=== PATIENT | female | born 1940 | race Caucasian/White ===

== ENCOUNTER → 2016-07-09 | Outpatient (CLI) | payer MEDICARE ==
[~2016-07-09] MED LIST: ASPI-496 PO; ATOR10TA9 PO; CALC500T26 PO; CHOL5000 PO; GABA300C10 PO; GLIP10TA13 PO; HYDR25TA6 PO; LOSA50TA6 PO; METF500T4 PO; SITA50TA PO; VITA1TAB3 PO
== END | disposition home or self-care (01) ==
LOC: CFH 13:06
PROVIDERS: ATTEND Nurse Practitioner
DX: E04.2 Nontoxic multinodular goiter (principal)
CPT/HCPCS: 76536

== ENCOUNTER → 2016-08-03 | Outpatient (CLI) | payer MEDICARE | END | disposition home or self-care (01) | LOC: CVU 10:31 | PROVIDERS: ATTEND Nurse Practitioner | DX: R25.2 Cramp and spasm (principal); I10 Essential (primary) hypertension; E11.9 Type 2 diabetes mellitus without complications; Z87.891 Personal history of nicotine dependence; Z86.73 Personal history of transient ischemic attack (TIA), and cerebral infarction without residual deficits; Z86.718 Personal history of other venous thrombosis and embolism | CPT/HCPCS: 93922 ==

== ENCOUNTER → 2016-12-20 | Outpatient (CLI) | payer MEDICARE ==
[~2016-12-20] MED LIST changes: -CALC500T26 PO; +CALC500T93 PO
== END | disposition home or self-care (01) ==
LOC: CFH 12:26
PROVIDERS: ATTEND Internal Medicine Cardiovascular Disease
DX: I08.1 Rheumatic disorders of both mitral and tricuspid valves (principal); I10 Essential (primary) hypertension; E11.9 Type 2 diabetes mellitus without complications
CPT/HCPCS: 93306

== ENCOUNTER → 2017-06-29 | Outpatient (CLI) | payer MEDICARE ==
[~2017-06-29] MED LIST changes: +LIDOCAINE-MPF 1%, 5ML ONE; +OMNIPAQUE 350 MG/ML, 100ML BOTTLE ONE
[2017-06-29 13:00] LABS: CREATININE 1.08 mg/dL (0.55-1.02)
== END | disposition home or self-care (01) ==
LOC: RAD 12:16
PROVIDERS: ATTEND Otolaryngology Facial Plastic Surgery
DX: D11.0 Benign neoplasm of parotid gland (principal)
CPT/HCPCS: 10022; 36415; 70491; 76942; 82565; 88112; 88173; Q9967

== ENCOUNTER → 2017-08-25 | Outpatient (CLI) | payer MEDICARE ==
[~2017-08-25] MED LIST changes: +BENZ1TAB61 PO; +Cogentin PO; +DULO30CA2 PO; +INSU100I13 SC; -LIDOCAINE-MPF 1%, 5ML ONE; -OMNIPAQUE 350 MG/ML, 100ML BOTTLE ONE; +PREG75CA PO; +SERT25TA3 PO
[2017-08-25 16:15] LABS: ANION GAP 3 mmol/L (5-15); CALCIUM 8.8 mg/dL (8.5-10.1); CHLORIDE 109 mmol/L (98-107)
[2017-08-25 16:18] LABS: ALANINE AMINOTRANSFERASE 20 U/L (12-78); ALKALINE PHOSPHATASE 87 U/L (45-117); BILIRUBIN,TOTAL 0.4 mg/dL (0.2-1.0); TOTAL PROTEIN 7.7 g/dL (6.4-8.2)
[2017-08-25 16:38] LABS: BASOPHILS # (AUTO) 0.07 x10^3/uL (0-0.1); BASOPHILS % (AUTO) 1 % (0-1); EOSINOPHILS # (AUTO) 0.25 x10^3/uL (0-0.4); EOSINOPHILS % (AUTO) 3 % (1-7); LYMPHOCYTES # (AUTO) 2.36 x10^3/uL (1-3.4); LYMPHOCYTES % (AUTO) 30 % (22-44); MD NO; MEAN CORPUSCULAR HEMOGLOBIN 29.5 pg (27.0-34.8); MEAN CORPUSCULAR HGB CONC 33.3 g/dL (32.4-35.8); MEAN CORPUSCULAR VOLUME 88.7 fL (80-100); MEAN PLATELET VOLUME 9.8 fL (7.4-10.4); MONOCYTES # (AUTO) 0.51 x10^3/uL (0.2-0.8); MONOCYTES % (AUTO) 7 % (2-9); NEUTROPHILS # (AUTO) 4.65 x10^3/uL (1.8-6.8); NEUTROPHILS % (AUTO) 59 % (42-75); PLATELET COUNT 283 x10^3/uL (130-400); RED BLOOD COUNT 4.08 x10^6/uL (3.82-5.3); RED CELL DISTRIBUTION WIDTH 14.9 % (9.6-15.2)
== END | disposition home or self-care (01) ==
LOC: STAR 15:04
PROVIDERS: ATTEND Otolaryngology Facial Plastic Surgery
DX: Z01.818 Encounter for other preprocedural examination (principal); I45.10 Unspecified right bundle-branch block; D36.7 Benign neoplasm of other specified sites
CPT/HCPCS: 36415; 71046; 80053; 85025; 93005

== ENCOUNTER 2017-08-29 10:15 | Inpatient (IN) | payer MEDICARE ==
[2017-08-25 16:04] VITALS: BP 118/77
[~2017-08-29] VITALS: Ht 165.1 cm; Wt 96.6 kg
[2017-08-29] MEDS ORDERED: LACTATED RINGERS 1,000 ML IV SCH (10:40)
[2017-08-29] MEDS ORDERED: LIDOCAINE-MPF 1%, 2ML INFIL ONE (11:00)
[2017-08-29] MEDS ORDERED: DEXTROSE 50%, 50ML SYRINGE IVPush ONE (12:00)
[2017-08-29] MEDS ORDERED: BACITRACIN ZINC OINT 500U/GM, 0.9 GM ONE (14:02)
[2017-08-29] MEDS ORDERED: LIDOCAINE/PF 1%, 30ML ONE (14:02)
[2017-08-29] MEDS ORDERED: EPINEPHRINE 1 MG/ML, 1ML ONE (14:02)
[2017-08-29] MEDS ORDERED: MICROFIBRILLAR COLLAGEN 1 GM TP ONE (14:03)
[2017-08-29] MEDS ORDERED: SUCCINYLCHOLINE 20 MG/ML, 10ML ONE (14:15)
[2017-08-29] MEDS ORDERED: FENTANYL PF 100 MCG/2ML ONE ×4 (14:15→16:40)
[2017-08-29] MEDS ORDERED: LABETALOL 5MG/ML, 20ML ONE (14:15)
[2017-08-29] MEDS ORDERED: DEXAMETHASONE 4 MG/ML, 1ML ONE (14:15)
[2017-08-29] MEDS ORDERED: CEFAZOLIN 1,000 MG ONE (14:15)
[2017-08-29] MEDS ORDERED: PROPOFOL 10 MG/ML, 20ML ONE (14:15)
[2017-08-29] MEDS ORDERED: THROMBIN 5,000 UNIT VIAL TP ONE (17:48)
[2017-08-29] MEDS ORDERED: FENTANYL PF 100 MCG/2ML IV PRN (18:00)
[2017-08-29] MEDS ORDERED: LABETALOL 5MG/ML, 20ML IV PRN (18:00)
[2017-08-29] MEDS ORDERED: ACETAMINOPHEN 325 MG TABLET PO PRN ×2 (18:00→22:30)
[2017-08-29] MEDS ORDERED: HALOPERIDOL 5 MG/ML IV PRN (18:00)
[2017-08-29] MEDS ORDERED: OXYcodone 5 MG/5 ML ORAL.SOL UDC PO PRN (18:00)
[2017-08-29] MEDS ORDERED: hydrALAzine 20 MG/ML, 1ML IV PRN (18:00)
[2017-08-29] MEDS ORDERED: HYDROmorphone 1 MG/ML, 1ML IV PRN (18:00)
[2017-08-29] MEDS ORDERED: BISACODYL 10 MG SUPP PR PRN (22:30)
[2017-08-29] MEDS ORDERED: morphine SULFATE 10 MG/ML, 1ML IVPush PRN (22:30)
[2017-08-29] MEDS ORDERED: hydrALAzine 20 MG/ML, 1ML IVPush PRN (22:30)
[2017-08-29] MEDS ORDERED: LABETALOL 5MG/ML, 20ML IVPush PRN (22:30)
[2017-08-29] MEDS ORDERED: HYDROcodone/APAP 5/325 TABLET PO PRN (22:30)
[2017-08-29] MEDS ORDERED: POLYETHYLENE GLYCOL 17 GM PACKET PO PRN (22:30)
[2017-08-29] MEDS ORDERED: ONDANSETRON ODT 4 MG PO PRN (22:30)
[2017-08-29] MEDS ORDERED: DOCUSATE 100 MG CAPSULE PO PRN (22:30)
[2017-08-30 00:14] VITALS: BP 131/70
[2017-08-30 04:25] VITALS: BP 113/69
[2017-08-30 05:55] LABS: BASOPHILS # (AUTO) 0.13 x10^3/uL (0-0.1); BASOPHILS % (AUTO) 1 % (0-1); EOSINOPHILS % (AUTO) 0 % (1-7); LYMPHOCYTES % (AUTO) 14 % (22-44); MD NO; MEAN CORPUSCULAR HEMOGLOBIN 29.1 pg (27.0-34.8); MEAN CORPUSCULAR HGB CONC 32.9 g/dL (32.4-35.8); MEAN CORPUSCULAR VOLUME 88.3 fL (80-100); MEAN PLATELET VOLUME 9.1 fL (7.4-10.4); MONOCYTES # (AUTO) 0.47 x10^3/uL (0.2-0.8); MONOCYTES % (AUTO) 4 % (2-9); NEUTROPHILS # (AUTO) 9.21 x10^3/uL (1.8-6.8); NEUTROPHILS % (AUTO) 81 % (42-75); PLATELET COUNT 206 x10^3/uL (130-400); RED BLOOD COUNT 3.57 x10^6/uL (3.82-5.3)
[2017-08-30 05:56] LABS: ANION GAP 7 mmol/L (5-15); CALCIUM 8.3 mg/dL (8.5-10.1); CHLORIDE 106 mmol/L (98-107); CREATININE 0.98 mg/dL (0.55-1.02)
[2017-08-30 08:40] VITALS: BP 93/59
[2017-08-30] MEDS ORDERED: CEPH-368 PO (13:40)
[2017-08-30 13:47] VITALS: BP 104/64
== END 2017-08-30 15:44 | disposition home or self-care (01) | DRG 139 ==
LOC: OUT 10:15 → 4NOR 20:40 → OUT 22:24 → DCLOUNGE 08-30 15:32
PROVIDERS: ADMIT Hospitalist; ATTEND Otolaryngology Facial Plastic Surgery
PROC: 0CT80ZZ Resection of Right Parotid Gland, Open Approach (ICD-10-PCS; principal; 2017-08-29 13:00)
DX: D11.0 Benign neoplasm of parotid gland (principal); E11.9 Type 2 diabetes mellitus without complications; E78.5 Hyperlipidemia, unspecified; F32.9 Major depressive disorder, single episode, unspecified; F41.9 Anxiety disorder, unspecified; I10 Essential (primary) hypertension; Z87.891 Personal history of nicotine dependence; Z90.49 Acquired absence of other specified parts of digestive tract; Z72.89 Other problems related to lifestyle
CPT/HCPCS: 36415; 80048; 82962; 85025; 88305; C1729; J0171; J0690; J1100; J2704; J3010; J3490; J0330; J7120

== ENCOUNTER 2017-09-28 13:30 | Inpatient (IN) | payer MEDICARE ==
[~2017-09-28] VITALS: Ht 165.1 cm; Wt 93.4 kg
[~2017-09-28 13:30] MED LIST changes: +BENZ2AMP4 PO; +CEPH-368 PO; +DIPH25CA61 PO; -METF500T4 PO; +METF500T5 PO; +METO10TA82 PO
[2017-09-28] MEDS ORDERED: MORPHINE SULFATE 4 MG/ML, 1ML IVPush PRN ×2 (15:00→19:30)
[2017-09-28] MEDS ORDERED: ONDANSETRON 2MG/ML, 2ML IVPush ONE (15:00)
[2017-09-28] MEDS ORDERED: ONDANSETRON 2MG/ML, 2ML ONE (15:09)
[2017-09-28] MEDS ORDERED: MORPHINE SULFATE 4 MG/ML, 1ML ONE (15:10)
[2017-09-28] MEDS ORDERED: ACETAMINOPHEN 325 MG TABLET PO PRN (19:30)
[2017-09-28] MEDS ORDERED: GLUCAGON 1 MG IM PRN (19:30)
[2017-09-28] MEDS ORDERED: SENNA/DOCUSATE TABLET PO PRN (19:30)
[2017-09-28] MEDS ORDERED: DEXTROSE 50%, 50ML SYRINGE IVPush PRN (19:30)
[2017-09-28] MEDS ORDERED: LABETALOL 5MG/ML, 20ML IVPush PRN (19:30)
[2017-09-28] MEDS ORDERED: DEXTROSE 4 GM TAB.CHEW PO PRN (19:30)
[2017-09-28] MEDS ORDERED: METOCLOPRAMIDE 10MG TABLET PO PRN (19:30)
[2017-09-28 20:25] VITALS: BP 133/63
[2017-09-28] MEDS: INSULIN LISPRO 100 UNITS/ML, PEN SQ-INSULIN SCH (21:00)
[2017-09-28] MEDS: INSULIN GLARGINE 100 UNITS/ML, PEN SQ-INSULIN SCH (21:00)
[2017-09-28] MEDS: ENOXAPARIN 30 MG/0.3 ML SQ SCH (22:31)
[2017-09-28] MEDS: SODIUM CHLORIDE FLUSH 10ML SYR IVF SCH (22:32)
[2017-09-28] MEDS: PREGABALIN 75 MG CAPSULE PO SCH (22:32)
[2017-09-28] MEDS: ATORVASTATIN 10 MG TABLET PO SCH (22:32)
[2017-09-29] MEDS ORDERED: DIPHENHYDRAMINE 12.5MG/5ML, 10ML UDC PO PRN
[2017-09-29 01:00] VITALS: BP_SYST 104; BP_SYST 135; BP_DIAS 68; BP_DIAS 81
[2017-09-29] MEDS: INSULIN LISPRO 100 UNITS/ML, PEN SQ-INSULIN SCH ×4 (07:00→20:52)
[2017-09-29 08:00] VITALS: BP 108/67
[2017-09-29] MEDS: LOSARTAN 50MG TABLET PO SCH (08:41)
[2017-09-29] MEDS: ENOXAPARIN 30 MG/0.3 ML SQ SCH ×2 (08:41→20:48)
[2017-09-29] MEDS: PREGABALIN 75 MG CAPSULE PO SCH ×2 (08:41→21:00)
[2017-09-29] MEDS: SERTRALINE 50MG TABLET PO SCH (08:41)
[2017-09-29] MEDS: HYDROCHLOROTHIAZIDE 25 MG TABLET PO SCH (08:41)
[2017-09-29] MEDS: DULOXETINE 30 MG CAPSULE.DR PO SCH (08:41)
[2017-09-29] MEDS: SODIUM CHLORIDE FLUSH 10ML SYR IVF SCH ×2 (08:42→20:48)
[2017-09-29] MEDS: HYDROcodone/APAP 5/325 TABLET PO PRN ×2 (10:46→18:22)
[2017-09-29 14:30] VITALS: BP 90/67
[2017-09-29] MEDS: ONDANSETRON 2MG/ML, 2ML IVPush PRN (18:39)
[2017-09-29 20:00] VITALS: BP 105/62
[2017-09-29] MEDS: ATORVASTATIN 10 MG TABLET PO SCH (21:00)
[2017-09-29] MEDS: INSULIN GLARGINE 100 UNITS/ML, PEN SQ-INSULIN SCH (22:25)
[2017-09-29] MEDS ORDERED: MORPHINE SULFATE 4 MG/ML, 1ML IV PRN (23:00)
[2017-09-29] MEDS ORDERED: KETOROLAC 30 MG/1 ML IVPush SCH (23:00)
[2017-09-29] MEDS ORDERED: KETOROLAC 30 MG/1 ML IVPush PRN (23:30)
[2017-09-30 01:57] VITALS: BP 116/71
[2017-09-30] MEDS: ONDANSETRON 2MG/ML, 2ML IVPush PRN ×3 (02:18→14:23)
[2017-09-30] MEDS: INSULIN LISPRO 100 UNITS/ML, PEN SQ-INSULIN SCH ×3 (07:00→16:02)
[2017-09-30 07:15] VITALS: BP 153/82
[2017-09-30] MEDS: SODIUM CHLORIDE FLUSH 10ML SYR IVF SCH (08:15)
[2017-09-30] MEDS: ENOXAPARIN 30 MG/0.3 ML SQ SCH (08:22)
[2017-09-30] MEDS: LOSARTAN 50MG TABLET PO SCH (08:26)
[2017-09-30] MEDS: PREGABALIN 75 MG CAPSULE PO SCH (08:27)
[2017-09-30] MEDS: SERTRALINE 50MG TABLET PO SCH (08:27)
[2017-09-30] MEDS: HYDROCHLOROTHIAZIDE 25 MG TABLET PO SCH (08:27)
[2017-09-30] MEDS: DULOXETINE 30 MG CAPSULE.DR PO SCH (08:27)
[2017-09-30] MEDS ORDERED: KETOROLAC 30 MG/1 ML IVPush SCH (11:00)
[2017-09-30] MEDS: HYDROcodone/APAP 5/325 TABLET PO PRN (14:23)
[2017-09-30 14:30] VITALS: BP 118/68
[2017-09-30 16:10] VITALS: BP 112/71
== END 2017-09-30 17:15 | DRG 556 ==
LOC: ED 19:01 → EDIP 19:06 → ED 19:51 → 4NOR 20:15 → OBSVTOIN 09-29 10:22
PROVIDERS: ADMIT Student in an Organized Health Care Education/Training Program; ATTEND Student in an Organized Health Care Education/Training Program
DX: M25.552 Pain in left hip (principal); C64.1 Malignant neoplasm of right kidney, except renal pelvis; M16.11 Unilateral primary osteoarthritis, right hip; Z80.1 Family history of malignant neoplasm of trachea, bronchus and lung; Z82.49 Family history of ischemic heart disease and other diseases of the circulatory system; Z83.3 Family history of diabetes mellitus; I10 Essential (primary) hypertension; E11.9 Type 2 diabetes mellitus without complications; F17.210 Nicotine dependence, cigarettes, uncomplicated; F32.9 Major depressive disorder, single episode, unspecified; Z79.4 Long term (current) use of insulin; Z79.899 Other long term (current) drug therapy; Z98.1 Arthrodesis status; F41.9 Anxiety disorder, unspecified; W01.0XXA Fall on same level from slipping, tripping and stumbling without subsequent striking against object, initial encounter; Y93.89 Activity, other specified; Y92.89 Other specified places as the place of occurrence of the external cause; Y99.8 Other external cause status; E78.5 Hyperlipidemia, unspecified
CPT/HCPCS: 72110; 82962; 96372; 96374; 96375; 96376; G0378; J1650; J2405; J1815

== ENCOUNTER → 2017-11-16 | Outpatient (CLI) | payer MEDICARE ==
[~2017-11-16] MED LIST changes: +REGADENOSON 0.4 MG/5 ML SYRINGE ONE
== END | disposition home or self-care (01) ==
LOC: CFH 12:42
PROVIDERS: ATTEND Internal Medicine Cardiovascular Disease
DX: Z01.810 Encounter for preprocedural cardiovascular examination (principal); I34.0 Nonrheumatic mitral (valve) insufficiency
CPT/HCPCS: 78452; 93017; A9502; J2785

== ENCOUNTER 2017-12-02 19:02 | Emergency (ER) | payer MEDICARE ==
[~2017-12-02] VITALS: Ht 165.1 cm; Wt 80.0 kg
[~2017-12-02 19:02] MED LIST changes: -LOSA50TA6 PO; +LOSA50TA7 PO; +METF500T17 PO; -METF500T5 PO; -REGADENOSON 0.4 MG/5 ML SYRINGE ONE
[2017-12-02 20:26] VITALS: BP 138/62
[2017-12-02] MEDS ORDERED: OXYcodone/APAP 10/325MG TABLET PO ONE (21:00)
[2017-12-02] MEDS ORDERED: OXYcodone/APAP 10/325MG TABLET ONE (21:04)
== END 2017-12-02 22:06 | disposition home or self-care (01) ==
LOC: ED 21:58
DX: S39.012A Strain of muscle, fascia and tendon of lower back, initial encounter (principal); S06.310A Contusion and laceration of right cerebrum without loss of consciousness, initial encounter; M51.34 Other intervertebral disc degeneration, thoracic region; I10 Essential (primary) hypertension; E11.9 Type 2 diabetes mellitus without complications; R51 Headache; W01.0XXA Fall on same level from slipping, tripping and stumbling without subsequent striking against object, initial encounter; Y93.89 Activity, other specified; Y99.8 Other external cause status; Y92.009 Unspecified place in unspecified non-institutional (private) residence as the place of occurrence of the external cause
CPT/HCPCS: 70450; 72110; 72125; 72190; 99284

== ENCOUNTER 2017-12-07 11:20 | Inpatient (IN) | payer MEDICARE ==
[~2017-12-07] VITALS: Ht 175.3 cm; Wt 84.2 kg
[2017-12-07] MEDS ORDERED: SODIUM CHLORIDE 0.9% 1,000ML IVBOLUS ONE (12:30)
[2017-12-07 12:43] LABS: BASOPHILS # (AUTO) 0.04 x10^3/uL (0-0.1); BASOPHILS % (AUTO) 0 % (0-1); EOSINOPHILS # (AUTO) 0.01 x10^3/uL (0-0.4); EOSINOPHILS % (AUTO) 0 % (1-7); LYMPHOCYTES # (AUTO) 1.22 x10^3/uL (1-3.4); LYMPHOCYTES % (AUTO) 9 % (22-44); MD NO; MEAN CORPUSCULAR HEMOGLOBIN 29.8 pg (27.0-34.8); MEAN CORPUSCULAR HGB CONC 33.4 g/dL (32.4-35.8); MEAN CORPUSCULAR VOLUME 89.3 fL (80-100); MEAN PLATELET VOLUME 9.7 fL (7.4-10.4); MONOCYTES # (AUTO) 0.31 x10^3/uL (0.2-0.8); MONOCYTES % (AUTO) 2 % (2-9); NEUTROPHILS % (AUTO) 88 % (42-75); PLATELET COUNT 238 x10^3/uL (130-400); RED BLOOD COUNT 4.08 x10^6/uL (3.82-5.3); RED CELL DISTRIBUTION WIDTH 15.7 % (9.6-15.2)
[2017-12-07 12:55] LABS: INTERNATIONAL NORMALIZED RATIO 1.11 (0.93-1.1); PROTHROMBIN TIME 11.5 Seconds (9.6-11.5)
[2017-12-07] MEDS ORDERED: METO10TA82 PO (12:58)
[2017-12-07 13:00] LABS: CHLORIDE 102 mmol/L (98-107)
[2017-12-07 13:07] LABS: ANION GAP 13 mmol/L (5-15); CALCIUM 9.7 mg/dL (8.5-10.1); CREATININE 0.96 mg/dL (0.55-1.02)
[2017-12-07 13:08] LABS: ALANINE AMINOTRANSFERASE 17 U/L (12-78); ALKALINE PHOSPHATASE 85 U/L (45-117); BILIRUBIN,TOTAL 0.7 mg/dL (0.2-1.0); TOTAL PROTEIN 7.8 g/dL (6.4-8.2)
[2017-12-07 13:24] LABS: MICROSCOPIC INDICATED
[2017-12-07] MEDS ORDERED: CEFTRIAXONE PMX 1GM/50ML 50 ML ONE (14:14)
[2017-12-07 14:24] LABS: CULTURE INDICATED? YES
[2017-12-07] MEDS ORDERED: ONDANSETRON ODT 4 MG PO PRN (14:30)
[2017-12-07] MEDS ORDERED: DEXTROSE 4 GM TAB.CHEW PO PRN (14:30)
[2017-12-07] MEDS ORDERED: GLUCAGON 1 MG IM PRN (14:30)
[2017-12-07] MEDS ORDERED: METOCLOPRAMIDE 10MG TABLET PO PRN (14:30)
[2017-12-07] MEDS ORDERED: IBUPROFEN 600 MG TABLET PO PRN (14:30)
[2017-12-07] MEDS ORDERED: DEXTROSE 50%, 50ML SYRINGE IVPush PRN (14:30)
[2017-12-07] MEDS ORDERED: ACETAMINOPHEN 325 MG TABLET PO PRN (14:30)
[2017-12-07] MEDS ORDERED: POLYETHYLENE GLYCOL 17 GM PACKET PO PRN (14:30)
[2017-12-07] MEDS ORDERED: ENOXAPARIN 40 MG/0.4 ML SQ SCH (14:30)
[2017-12-07] MEDS ORDERED: DOCUSATE 100 MG CAPSULE PO PRN (14:30)
[2017-12-07] MEDS ORDERED: LACTATED RINGERS 1,000 ML IV SCH (14:30)
[2017-12-07] MEDS ORDERED: POTASSIUM CHLORIDE 30 MEQ in LACTATED RINGERS 1,000 ML IV SCH (14:30)
[2017-12-07 14:56] LABS: TROPONIN I 0.047 ng/mL (0.000-0.045)
[2017-12-07 14:57] VITALS: BP 133/65
[2017-12-07] MEDS ORDERED: MAGNESIUM SULFATE 3 GM in SODIUM CHLORIDE 0.9% 100 ML IV ONE (15:00)
[2017-12-07] MEDS ORDERED: CEFTRIAXONE 1,000 MG in SODIUM CHLORIDE 0.9% 50 ML IV ONE (15:00)
[2017-12-07] MEDS: INSULIN LISPRO 100 UNITS/ML, PEN SQ-INSULIN SCH ×2 (17:46→21:07)
[2017-12-07 18:54] VITALS: BP 114/72
[2017-12-07 20:38] LABS: TROPONIN I 0.049 ng/mL (0.000-0.045)
[2017-12-07] MEDS: POTASSIUM CHLORIDE 30 MEQ in LACTATED RINGERS 1,000 ML IV SCH (21:05)
[2017-12-07] MEDS: PREGABALIN 75 MG CAPSULE PO SCH (21:06)
[2017-12-07] MEDS: SODIUM CHLORIDE FLUSH 10ML SYR IVF SCH (21:06)
[2017-12-07] MEDS: INSULIN GLARGINE 100 UNITS/ML, PEN SQ-INSULIN SCH (21:07)
[2017-12-07] MEDS: ATORVASTATIN 10 MG TABLET PO SCH (21:07)
[2017-12-08 02:38] VITALS: BP 106/63
[2017-12-08 05:28] LABS: ANION GAP 9 mmol/L (5-15); CALCIUM 8.5 mg/dL (8.5-10.1); CHLORIDE 108 mmol/L (98-107); CREATININE 0.72 mg/dL (0.55-1.02)
[2017-12-08 05:35] LABS: BASOPHILS # (AUTO) 0.03 x10^3/uL (0-0.1); BASOPHILS % (AUTO) 0 % (0-1); EOSINOPHILS # (AUTO) 0.18 x10^3/uL (0-0.4); EOSINOPHILS % (AUTO) 2 % (1-7); LYMPHOCYTES # (AUTO) 2.96 x10^3/uL (1-3.4); LYMPHOCYTES % (AUTO) 28 % (22-44); MD NO; MEAN CORPUSCULAR HEMOGLOBIN 29.6 pg (27.0-34.8); MEAN CORPUSCULAR HGB CONC 33.4 g/dL (32.4-35.8); MEAN CORPUSCULAR VOLUME 88.5 fL (80-100); MEAN PLATELET VOLUME 10.3 fL (7.4-10.4); MONOCYTES # (AUTO) 0.67 x10^3/uL (0.2-0.8); MONOCYTES % (AUTO) 6 % (2-9); NEUTROPHILS # (AUTO) 6.81 x10^3/uL (1.8-6.8); NEUTROPHILS % (AUTO) 64 % (42-75); PLATELET COUNT 179 x10^3/uL (130-400); RED BLOOD COUNT 3.46 x10^6/uL (3.82-5.3); RED CELL DISTRIBUTION WIDTH 15.6 % (9.6-15.2)
[2017-12-08] MEDS ORDERED: POTASSIUM CHLORIDE 40 MEQ in SODIUM CHLORIDE 0.9% 500 ML IV ONE (06:30)
[2017-12-08] MEDS: INSULIN LISPRO 100 UNITS/ML, PEN SQ-INSULIN SCH ×4 (07:00→20:26)
[2017-12-08 07:51] VITALS: BP 130/74
[2017-12-08] MEDS ORDERED: LACTATED RINGERS 500 ML IVBOLUS ONE (08:30)
[2017-12-08] MEDS: BENZTROPINE 1 MG/ML, 2 ML HOMEINJ SCH (08:31)
[2017-12-08] MEDS: KETOROLAC 30 MG/1 ML IVPush SCH ×3 (08:31→20:22)
[2017-12-08] MEDS: SODIUM CHLORIDE FLUSH 10ML SYR IVF SCH ×2 (08:32→20:22)
[2017-12-08] MEDS: TEMPLATE NON-FORMULARY MED. (Sitagliptin Phosphate** (Januvia**) 100 MG) PO SCH (08:32)
[2017-12-08] MEDS: DULOXETINE 30 MG CAPSULE.DR PO SCH (08:33)
[2017-12-08] MEDS: LOSARTAN 50MG TABLET PO SCH (08:33)
[2017-12-08] MEDS: PREGABALIN 75 MG CAPSULE PO SCH ×2 (08:34→20:23)
[2017-12-08] MEDS: SERTRALINE 50MG TABLET PO SCH (08:34)
[2017-12-08] MEDS: HYDROCHLOROTHIAZIDE 25 MG TABLET PO SCH (08:53)
[2017-12-08] MEDS ORDERED: DIPHENHYDRAMINE 25 MG CAPSULE PO SCH (09:00)
[2017-12-08] MEDS ORDERED: CHOLECALCIFEROL 5,000u TAB PO SCH (09:00)
[2017-12-08] MEDS: OXYcodone/APAP 5/325MG TABLET PO PRN ×2 (11:19→18:34)
[2017-12-08 13:45] VITALS: BP 105/68
[2017-12-08] MEDS ORDERED: CEFTRIAXONE PMX 1GM/50ML 50 ML IV SCH (14:00)
[2017-12-08] MEDS ORDERED: CEFTRIAXONE 1,000 MG in SODIUM CHLORIDE 0.9% 50 ML IV SCH (14:00)
[2017-12-08] MEDS ORDERED: CEFTRIAXONE 1,000 MG IM SCH (15:00)
[2017-12-08] MEDS: POTASSIUM CHLORIDE 30 MEQ in LACTATED RINGERS 1,000 ML IV SCH (18:34)
[2017-12-08 19:33] VITALS: BP 126/54
[2017-12-08] MEDS: ATORVASTATIN 10 MG TABLET PO SCH (20:23)
[2017-12-08] MEDS: INSULIN GLARGINE 100 UNITS/ML, PEN SQ-INSULIN SCH (20:25)
[2017-12-09] MEDS: OXYcodone/APAP 5/325MG TABLET PO PRN (01:11)
[2017-12-09 01:12] VITALS: BP 114/70
[2017-12-09] MEDS: KETOROLAC 30 MG/1 ML IVPush SCH ×3 (02:06→14:12)
[2017-12-09 05:38] LABS: CHLORIDE 109 mmol/L (98-107)
[2017-12-09 05:42] LABS: ANION GAP 8 mmol/L (5-15); CALCIUM 8.2 mg/dL (8.5-10.1); CREATININE 0.69 mg/dL (0.55-1.02)
[2017-12-09] MEDS ORDERED: MAGNESIUM SULFATE PMX 2GM/50ML 50 ML IV ONE (06:30)
[2017-12-09 06:56] VITALS: BP 110/58
[2017-12-09] MEDS: INSULIN LISPRO 100 UNITS/ML, PEN SQ-INSULIN SCH ×2 (07:26→12:15)
[2017-12-09] MEDS: POTASSIUM CHLORIDE 30 MEQ in LACTATED RINGERS 1,000 ML IV SCH (08:22)
[2017-12-09] MEDS: LOSARTAN 50MG TABLET PO SCH (08:23)
[2017-12-09] MEDS: BENZTROPINE 1 MG/ML, 2 ML HOMEINJ SCH (08:24)
[2017-12-09] MEDS: HYDROCHLOROTHIAZIDE 25 MG TABLET PO SCH (08:24)
[2017-12-09] MEDS: TEMPLATE NON-FORMULARY MED. (Sitagliptin Phosphate** (Januvia**) 100 MG) PO SCH (10:14)
[2017-12-09] MEDS: PREGABALIN 75 MG CAPSULE PO SCH (10:24)
[2017-12-09] MEDS: DULOXETINE 30 MG CAPSULE.DR PO SCH (10:24)
[2017-12-09] MEDS: SODIUM CHLORIDE FLUSH 10ML SYR IVF SCH (10:25)
[2017-12-09] MEDS: SERTRALINE 50MG TABLET PO SCH (10:25)
[2017-12-09] MEDS ORDERED: HYDROcodone/APAP 5/325 TABLET PO PRN (12:30)
[2017-12-09 12:54] VITALS: BP 101/59
== END 2017-12-09 16:35 | disposition home health service (06) | DRG 871 ==
LOC: ED 13:31 → EDIP 13:32 → ED 13:46 → 3NE 14:36 → 3NW 12-08 15:44 → DCLOUNGE 12-09 16:23
PROVIDERS: ADMIT Family Medicine; ATTEND Family Medicine
PROC: 0T9B70Z Drainage of Bladder with Drainage Device, Via Natural or Artificial Opening (ICD-10-PCS; principal; 2017-12-07)
DX: A41.9 Sepsis, unspecified organism (principal); G93.41 Metabolic encephalopathy; C64.9 Malignant neoplasm of unspecified kidney, except renal pelvis; E11.9 Type 2 diabetes mellitus without complications; E86.0 Dehydration; I10 Essential (primary) hypertension; F17.210 Nicotine dependence, cigarettes, uncomplicated; W18.30XA Fall on same level, unspecified, initial encounter; E87.6 Hypokalemia; E83.42 Hypomagnesemia; E78.5 Hyperlipidemia, unspecified; Z85.528 Personal history of other malignant neoplasm of kidney; Z91.81 History of falling; Z79.4 Long term (current) use of insulin; Z90.49 Acquired absence of other specified parts of digestive tract; S06.0X0A Concussion without loss of consciousness, initial encounter; W18.39XA Other fall on same level, initial encounter; Y93.89 Activity, other specified; Y92.89 Other specified places as the place of occurrence of the external cause; Y99.8 Other external cause status; Z80.0 Family history of malignant neoplasm of digestive organs; Z82.49 Family history of ischemic heart disease and other diseases of the circulatory system; Z83.3 Family history of diabetes mellitus; Z88.6 Allergy status to analgesic agent; G43.909 Migraine, unspecified, not intractable, without status migrainosus; R00.0 Tachycardia, unspecified
CPT/HCPCS: 36415; 70450; 71045; 80048; 80053; 81001; 82962; 83605; 83735; 84100; 84145; 84484; 85025; 85610; 87040; 87086; 93005; 96361; 96374; 99285; G0378; J0696; J1885; J3475; J3480; J7120; J1815; J7030; J7040; Q0163

== ENCOUNTER → 2020-06-25 | Outpatient (CLI) | payer MEDICARE ==
[~2020-06-25] MED LIST changes: +CALC600T60 PO; +CARV3.1212 PO; +CBD oil PO; +CETI10CA PO; +DOXE6TAB3 PO; +FERR324T5 PO; +HYDR25CA94 PO; +IRON PO; +LIRA0.6P INJ; +LOSA50TA14 PO; -LOSA50TA7 PO; +NOVOLOG FLEXPEN; +OMEP40CA42 PO; +SENN-52 PO; +SERT-331 PO; -SERT25TA3 PO; +SPIR25TA5 PO; +Super B Complex; +VITA1CAP7 PO; +ZONI100C29 PO
[2020-06-25 15:58] LABS: BASOPHILS % (AUTO) 0 % (0-1); EOSINOPHILS % (AUTO) 2 % (1-7); LYMPHOCYTES % (AUTO) 25 % (22-44); MD NO; MEAN CORPUSCULAR HEMOGLOBIN 29.7 pg (27.0-34.8); MEAN CORPUSCULAR HGB CONC 32.5 g/dL (32.4-35.8); MEAN PLATELET VOLUME 8.2 fL (7.4-10.4); MONOCYTES % (AUTO) 6 % (2-9); NEUTROPHILS % (AUTO) 66 % (42-75); PLATELET COUNT 321 x10^3/uL (130-400); RED BLOOD COUNT 3.96 x10^6/uL (3.82-5.3); RED CELL DISTRIBUTION WIDTH 15.8 % (9.6-15.2)
[2020-06-25 16:04] LABS: ALANINE AMINOTRANSFERASE 21 U/L (12-78); ANION GAP 4 mmol/L (5-15); CHLORIDE 110 mmol/L (98-107); CREATININE 1.44 mg/dL (0.55-1.02)
[2020-06-25 16:06] LABS: ALKALINE PHOSPHATASE 116 U/L (45-117); BILIRUBIN,TOTAL 0.2 mg/dL (0.2-1.0); TOTAL PROTEIN 8.4 g/dL (6.4-8.2)
== END | disposition home or self-care (01) ==
LOC: STAR 14:40
PROVIDERS: ATTEND Orthopaedic Surgery
DX: Z01.812 Encounter for preprocedural laboratory examination (principal); Z20.822 Contact with and (suspected) exposure to COVID-19; M25.521 Pain in right elbow; I45.10 Unspecified right bundle-branch block
CPT/HCPCS: 36415; 80053; 85025; 93005; U0003

== ENCOUNTER 2020-07-01 10:04 | Day surgery (SDC) | payer MEDICARE ==
[~2020-07-01] VITALS: Ht 160 cm; Wt 78.0 kg
[2020-07-01 10:25] VITALS: BP 111/69
[2020-07-01] MEDS ORDERED: CHLORHEXIDINE 15 ML UDC ONE (10:37)
[2020-07-01] MEDS ORDERED: ONDANSETRON 2MG/ML, 2ML IVPush PRN (11:00)
[2020-07-01] MEDS ORDERED: hydrALAzine 20 MG/ML, 1ML IV PRN (11:00)
[2020-07-01] MEDS ORDERED: LABETALOL 5MG/ML, 20ML IV PRN (11:00)
[2020-07-01] MEDS ORDERED: LACTATED RINGERS 1,000 ML IV SCH (11:00)
[2020-07-01] MEDS ORDERED: morphine SULFATE 10 MG/ML, 1ML IVPush PRN (11:00)
[2020-07-01] MEDS ORDERED: ACETAMINOPHEN 325 MG TABLET PO PRN (11:00)
[2020-07-01] MEDS ORDERED: CHLORHEXIDINE 15 ML UDC PO ONE (11:00)
[2020-07-01] MEDS ORDERED: OXYcodone 5 MG/5 ML ORAL.SOL UDC PO PRN (11:00)
[2020-07-01] MEDS ORDERED: PROMETHAZINE 25 MG/ML, 1ML IVPush PRN (11:00)
[2020-07-01] MEDS ORDERED: FENTANYL PF 100 MCG/2ML IV PRN (11:00)
[2020-07-01] MEDS ORDERED: FENTANYL PF 100 MCG/2ML ONE (11:31)
[2020-07-01] MEDS ORDERED: SUCCINYLCHOLINE 20 MG/ML, 10ML ONE (11:35)
[2020-07-01] MEDS ORDERED: ROCURONIUM 10 MG/ML,10ML ONE (11:35)
[2020-07-01] MEDS ORDERED: PHENYLEPHRINE 10 MG/ML ONE (11:47)
[2020-07-01] MEDS ORDERED: CEFAZOLIN 1,000 MG ONE ×2 (11:49→12:05)
[2020-07-01] MEDS ORDERED: ONDANSETRON 2MG/ML, 2ML ONE ×2 (11:51→12:05)
[2020-07-01] MEDS ORDERED: PROPOFOL 10 MG/ML, 20ML ONE (11:51)
[2020-07-01] MEDS ORDERED: EPHEDRINE 50 MG/ML, 1ML ONE ×2 (12:05)
[2020-07-01] MEDS ORDERED: OXYcodone 5 MG/5 ML ORAL.SOL UDC ONE (12:35)
[2020-07-01] MEDS ORDERED: ACETAMINOPHEN 650 MG/20.3 ML UDC ONE (12:35)
[2020-07-01] MEDS ORDERED: CEPH-376 PO (13:09)
== END 2020-07-01 15:20 | disposition home or self-care (01) ==
LOC: OUT 10:04
PROVIDERS: ATTEND Orthopaedic Surgery
DX: L89.013 Pressure ulcer of right elbow, stage 3 (principal); I10 Essential (primary) hypertension; E11.9 Type 2 diabetes mellitus without complications; K21.9 Gastro-esophageal reflux disease without esophagitis; M19.90 Unspecified osteoarthritis, unspecified site; Z79.84 Long term (current) use of oral hypoglycemic drugs; Z79.891 Long term (current) use of opiate analgesic; Z79.899 Other long term (current) drug therapy
CPT/HCPCS: 11043; 82962; J0330; J0690; J2370; J2405; J2704; J3010; J7120